=== PATIENT | female | born 1985 | race Caucasian/White ===

== ENCOUNTER 2016-12-09 17:07 | Emergency (ER) | payer BC, OTHER ==
[2016-12-09] MEDS ORDERED: NS 1,000 ML IV ONE (17:36)
[2016-12-09 18:24] LABS: % IMMATURE GRANULYOCYTES 0.3 % (0.0-1.1); ABSOLUTE IMMATURE GRANULOCYTES 0.03 10^3/uL (0.00-0.10); ADD DIFF? NO; ADD MORPH? NO; ADD SCAN? NO; ATYPICAL LYMPHOCYTE FLAG 10 (0-99); FRAGMENT RBC FLAG 30 (0-99); HEMATOCRIT 41.9 % (38.0-47.0); HEMOGLOBIN 13.8 g/dL (12.6-16.3); LEFT SHIFT FLG 0 (0-99); LIPEMIA HEMOLYSIS FLAG 80 (0-99); MEAN CELL HEMOGLOBIN 28.8 pg (27.9-34.1); MEAN CELL HEMOGLOBIN CONCENTR. 32.9 g/dL (32.4-36.7); MEAN CELL VOLUME 87.3 fL (81.5-99.8); MEAN PLATELET VOLUME 9.9 fL (8.7-11.7); PLATELET CLUMPS FLAG 0 (0-99); PLATELET COUNT 333 10^3/uL (150-400); RED CELL DISTRIBUTION WIDTH 13.3 % (11.5-15.2)
[2016-12-09 18:25] LABS: COLOR PALE YELLOW; LEUKOCYTE ESTERASE,URINE TRACE (NEGATIVE); NITRITE,URINE NEGATIVE (NEGATIVE)
[2016-12-09 18:29] VITALS: O2SAT 96
[2016-12-09 18:38] LABS: ANION GAP 13 mEq/L (8-16); CALCIUM 10.6 mg/dL (8.5-10.4); CARBON DIOXIDE 24 mEq/l (22-31); CHLORIDE 100 mEq/L (97-110); CREATININE 0.7 mg/dL (0.6-1.0); GLOMERULAR FILTRATION RATE > 60; GLUCOSE 89 mg/dL (70-100); POTASSIUM 3.9 mEq/L (3.5-5.2); SODIUM 137 mEq/L (134-144)
[2016-12-09 18:44] LABS: BACTERIA 1+ /hpf (NONE SEEN)
[2016-12-09] MEDS ORDERED: NITROFURANTOIN MACROBID 100 MG CAP PO ONE (20:21)
[2016-12-09] MEDS ORDERED: NITROFURANTOIN 100MG PREPACK#2 BTL TAKEHOME ONE (20:21)
[2016-12-09] MEDS ORDERED: CEPHALEXIN 500MG PREPACK#4 BTL TAKEHOME ONE (20:32)
--- NOTE | 2016-12-09 20:38 | EDPHY ---
H & P Stated Complaint: vag spotting, x 1 hour (unable to quantify) 9 weeks no pain Time Seen by Provider: 12/09/16 17:28 HPI/ROS: Chief complaint: with vaginal bleeding History of present illness: This is a 31-year-old female, 2, para 1, approximately 9 weeks who presents to the emergency department with vaginal bleeding. Patient reports the onset of bleeding this evening. She reports some mild dark blood from the vagina. She denies precipitating factors. She denies alleviating factors. Further she denies associated signs or symptoms including no pelvic pain or cramping, no bright red blood from the vagina are clot passage, no urinary symptoms, no fever. Review of systems: A 10 point review of systems was obtained and other than described above was negative - Personal History LMP (Females 10-55): Current Tetanus/Diphtheria Vaccine: Unsure Current Tetanus Diphtheria and Acellular Pertussis (TDAP): Unsure Tetanus Vaccine Date: WITHIN 5 YRS - Medical/Surgical History Hx Asthma: No Hx Chronic Respiratory Disease: No Hx Diabetes: Yes Hx Cardiac Disease: No Hx Renal Disease: No Hx Cirrhosis: No Hx Alcoholism: No Hx HIV/AIDS: No Hx Splenectomy or Spleen Trauma: No Other PMH: PSHx: tonsillectomy, deviated septum repair HSV history Gestational diabetes insulin dependant; - Social History Smoking Status: Never smoked - Physical Exam Exam: General Appearance: Alert, nontoxic. Eyes: Pupils equal and round no pallor or injection. ENT, Mouth: Mucous membranes moist. Respiratory: There are no retractions, lungs are clear to auscultation. Cardiovascular: Regular rate and rhythm. Gastrointestinal: Abdomen is soft and non tender, no masses, bowel sounds normal. Neurological: Alert and oriented x4. Strength and sensation intact and symmetrical. Skin: Warm and dry, no rashes. Musculoskeletal: Neck is supple non tender. Extremities are symmetrical, full range of motion. Psychiatric: Patient is oriented X 3, there is no agitation. Constitutional: Initial Vital Signs Temperature (C) 37.0 C 12/09/16 17:17 Heart Rate 80 12/09/16 17:17 Respiratory Rate 18 12/09/16 17:17 Blood Pressure 136/96 H 12/09/16 17:17 O2 Sat (%) 98 12/09/16 17:17 O2 Delivery Mode Room Air Allergies/Adverse Reactions: Pertussis Vaccines Allergy (Verified 09/02/15 11:52) Home Medications: Medication Instructions Recorded Cephalexin [Keflex] 500 mg PO TID 6 Days cap 12/09/16 HUM INSULIN NPH/REG INSULIN HM 12/09/16 Metformin HCl 12/09/16 Medical Decision Making - Diagnostics Imaging Results: Imaging Impressions Obstetrics Ultrasound 12/09/16 17:37 Impression: 1. Single viable intrauterine gestation with EGA by LMP corresponding to 9 weeks and by ultrasound corresponding to 8 weeks 3 days. 2. Estimated date of delivery is 07/14/2017 by LMP and 07/18/2017 by ultrasound. Size consistent with dates. 3. Tiny subchorionic hemorrhage along the anterior inferior aspect of the gestational sac. Findings discussed with ANTONIETA Theodore at 20:11 hour, 12/09/2016. Imaging: Discussed imaging studies w/ dye lab technician Radiologist ED Course/Re-evaluation: Patient is discussed with my secondary supervising physician Dr. Matthew Naik. Patient presents to the emergency department approximately 9 weeks with dark blood coming from the vagina. She is nontoxic. Afebrile and vital signs are stable. Blood studies are unremarkable. Review of previous records show her blood type as A positive, RhoGAM not indicated. Urinalysis concerning for UTI, review of past urine culture shows sears sensitivity and she is started on Keflex. Ultrasound shows a small subchorionic hemorrhage otherwise unremarkable. I believe patient is appropriate for discharge home and follow up with her OBGYN next week. Home care is discussed including pelvic rest. Strict return precautions are given. Patient voiced understanding and agreement with plan. Differential Diagnosis: Included but not limited to , ectopic , miscarriage, threatened miscarriage, missed miscarriage, inevitable miscarriage, blighted ovum, vaginal infections, urinary tract infection - Data Points Laboratory Results: Laboratory Results 12/09/16 17:46 12/09/16 17:46 12/09/16 12/09/16 12/09/16 18:15 17:46 17:46 WBC 8.74 10^3/uL 10^3/uL (3.80-9.50) RBC 4.80 10^6/uL 10^6/uL (4.18-5.33) Hgb 13.8 g/dL g/dL (12.6-16.3) Hct 41.9 % % (38.0-47.0) MCV 87.3 fL fL (81.5-99.8) MCH 28.8 pg pg (27.9-34.1) MCHC 32.9 g/dL g/dL (32.4-36.7) RDW 13.3 % % (11.5-15.2) Plt Count 333 10^3/uL 10^3/uL (150-400) MPV 9.9 fL fL (8.7-11.7) Neut % (Auto) 61.3 % % (39.3-74.2) Lymph % (Auto) 30.1 % % (15.0-45.0) Frio % (Auto) 6.4 % % (4.5-13.0) Eos % (Auto) 1.4 % % (0.6-7.6) Baso % (Auto) 0.5 % % (0.3-1.7) Nucleat RBC Rel Count 0.0 % % (0.0-0.2) Absolute Neuts (auto) 5.36 10^3/uL 10^3/uL (1.70-6.50) Absolute Lymphs (auto) 2.63 10^3/uL 10^3/uL (1.00-3.00) Absolute Monos (auto) 0.56 10^3/uL 10^3/uL (0.30-0.80) Absolute Eos (auto) 0.12 10^3/uL 10^3/uL (0.03-0.40) Absolute Basos (auto) 0.04 10^3/uL 10^3/uL (0.02-0.10) Absolute Nucleated RBC 0.00 10^3/uL 10^3/uL (0-0.01) Immature Gran % 0.3 % % (0.0-1.1) Immature Gran # 0.03 10^3/uL 10^3/uL (0.00-0.10) Sodium 137 mEq/L mEq/L (134-144) Potassium 3.9 mEq/L mEq/L (3.5-5.2) Chloride 100 mEq/L mEq/L (97-110) Carbon Dioxide 24 mEq/l mEq/l (22-31) Anion Gap 13 mEq/L mEq/L (8-16) BUN 14 mg/dL mg/dL (7-23) Creatinine 0.7 mg/dL mg/dL (0.6-1.0) Estimated GFR > 60 Glucose 89 mg/dL mg/dL (70-100) Calcium 10.6 mg/dL H mg/dL (8.5-10.4) Beta HCG, Quant 244881.00 mIU/mL H mIU/mL (0.00-4.83) Urine Color PALE YELLOW Urine Appearance CLEAR Urine pH 6.0 (5.0-7.5) Ur Specific Logan 1.003 (1.002-1.030) Urine Protein NEGATIVE (NEGATIVE) Urine Ketones NEGATIVE (NEGATIVE) Urine Blood 3+ H (NEGATIVE) Urine Nitrate NEGATIVE (NEGATIVE) Urine Bilirubin NEGATIVE (NEGATIVE) Urine Urobilinogen NEGATIVE EU EU (0.2-1.0) Ur Leukocyte Esterase TRACE H (NEGATIVE) Urine RBC 10-15 /hpf H /hpf (0-3) Urine WBC 5-10 /hpf H /hpf (0-3) Ur Epithelial Cells TRACE /lpf /lpf (NONE-1+) Urine Bacteria 1+ /hpf H /hpf (NONE SEEN) Urine Glucose NEGATIVE (NEGATIVE) Medications Given: Discontinued Medications Cephalexin (Keflex 500 Mg Prepack#4) 1 btl TAKEHOME EDNOW ONE PRN Reason: Protocol Stop: 12/09/16 20:33 Last Admin: 12/09/16 20:46 Dose: 1 btl Sodium Chloride (Ns) 1,000 mls @ 0 mls/hr IV EDNOW ONE; Wide Open PRN Reason: Protocol Stop: 12/09/16 17:37 Last Admin: 12/09/16 18:00 Dose: 1,000 mls Nitrofurantoin (Macrobid 100mg Prepack#2) 1 btl TAKEHOME EDNOW ONE PRN Reason: Protocol Stop: 12/09/16 20:22 Last Admin: 12/09/16 20:36 Dose: Not Given Nitrofurantoin Macrocrystals (Macrobid) 100 mg PO EDNOW ONE PRN Reason: Protocol Stop: 12/09/16 20:22 Last Admin: 12/09/16 20:37 Dose: Not Given Departure - Departure Disposition: Home, Routine, Self-Care Clinical Impression: Threatened UTI (urinary tract infection) Qualifiers: Urinary tract infection type: site unspecified Hematuria presence: with hematuria Qualified Code(s): N39.0 - Urinary tract infection, site not specified ; R31.9 - Hematuria, unspecified Condition: Good Instructions: Cephalexin (By mouth), Threatened Miscarriage (ED), Urinary Tract Infection in (ED), Subchorionic Hemorrhage (ED) Additional Instructions: Follow-up with your OBGYN next week for recheck Take antibiotics as prescribed If symptoms worsen or new symptoms develop return to the emergency room for recheck Referrals: Concepción Clarke NP [Primary Care Provider] - As per Instructions Prescriptions: Cephalexin [Keflex] 500 mg PO TID 6 Days cap
[2016-12-09 20:49] VITALS: BP 120/81; PULSE 81; RESP 16; TEMP 98.2
== END 2016-12-09 20:49 | disposition home or self-care (01) ==
PROC: 3E0337Z Introduction of Electrolytic and Water Balance Substance into Peripheral Vein, Percutaneous Approach (ICD-10-PCS; principal; 2016-12-09)
DX: O20.0 Threatened abortion (principal); O23.41 Unspecified infection of urinary tract in pregnancy, first trimester; O26.891 Other specified pregnancy related conditions, first trimester; R31.9 Hematuria, unspecified; O99.281 Endocrine, nutritional and metabolic diseases complicating pregnancy, first trimester; E86.9 Volume depletion, unspecified; Z3A.09 9 weeks gestation of pregnancy; Z79.4 Long term (current) use of insulin

== ENCOUNTER → 2017-01-08 | Outpatient (CLI) | payer BC | LOC: FIMAGING 08:06 | PROVIDERS: ATTEND Advanced Practice Midwife | DX: O24.111 Pre-existing type 2 diabetes mellitus, in pregnancy, first trimester (principal); Z3A.13 13 weeks gestation of pregnancy ==

== ENCOUNTER → 2017-02-26 | Outpatient (CLI) | payer BC | LOC: FIMAGING 07:49 | PROVIDERS: ATTEND Obstetrics & Gynecology | DX: Z36.89 Encounter for other specified antenatal screening (principal); Z3A.20 20 weeks gestation of pregnancy; O24.415 Gestational diabetes mellitus in pregnancy, controlled by oral hypoglycemic drugs; O34.219 Maternal care for unspecified type scar from previous cesarean delivery ==

== ENCOUNTER → 2017-04-03 | Outpatient (CLI) | payer BC | LOC: FIMAGING 08:32 | PROVIDERS: ATTEND Obstetrics & Gynecology | DX: O24.414 Gestational diabetes mellitus in pregnancy, insulin controlled (principal); O34.219 Maternal care for unspecified type scar from previous cesarean delivery; Z3A.25 25 weeks gestation of pregnancy ==

== ENCOUNTER → 2017-05-07 | Outpatient (CLI) | payer BC | LOC: FIMAGING 09:07 | PROVIDERS: ATTEND Obstetrics & Gynecology | DX: O24.414 Gestational diabetes mellitus in pregnancy, insulin controlled (principal); Z3A.30 30 weeks gestation of pregnancy ==

== ENCOUNTER 2017-06-11 10:40 | Observation (INO) | payer BC | END 2017-06-11 12:30 | disposition home or self-care (01) | LOC: FLD 10:40 | PROVIDERS: ADMIT Obstetrics & Gynecology; ATTEND Obstetrics & Gynecology | DX: Z34.83 Encounter for supervision of other normal pregnancy, third trimester (principal); Z3A.35 35 weeks gestation of pregnancy | CPT/HCPCS: 59025; G0378 ==

== ENCOUNTER → 2017-06-18 | Outpatient (CLI) | payer BC | LOC: FIMAGING 08:48 | PROVIDERS: ATTEND Obstetrics & Gynecology | DX: O09.893 Supervision of other high risk pregnancies, third trimester (principal); O24.113 Pre-existing type 2 diabetes mellitus, in pregnancy, third trimester; O34.219 Maternal care for unspecified type scar from previous cesarean delivery; Z3A.36 36 weeks gestation of pregnancy ==

== ENCOUNTER 2017-07-09 07:30 | Inpatient (IN) | payer BC ==
[2017-07-09] MEDS ORDERED: CITRIC ACID/SODIUM CITRATE 30 ML UDCUP PO ONE (08:45)
[2017-07-09] MEDS ORDERED: LR 500 ML IV ONE (08:45)
[2017-07-09] MEDS ORDERED: LR 1,000 ML IV SCH (09:00)
[2017-07-09 09:03] LABS: PLATELET COUNT 242 10^3/uL (150-400)
--- NOTE | 2017-07-09 09:22 | PDGENHP ---
History and Physical - Chief Complaint Scheduled RLTCS, Type II DM, h/o prior CS - History of Present Illness Salazar is a very pleasant 32 yo now with h/o GDM and subsequent dx of persistent (type II) DM. Has been seeing endo throughout the and has been on insulin - most recent regimen has been 60 units of long-acting insulin qHS and no need for mealtime correction. testing has been reassuring , and growth US's reassuring/WNL as below. Has had diarrhea/nausea since 0400 this AM unfortunately. She was interested in if cervix was favorable, but checked this AM on arrival to the hospital and found to be closed. 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 Constitutional: no apparent distress Lab Data & Imaging Review 07/09/17 08:48 WBC 10.18 10^3/uL (3.80-9.50) H 07/09/17 08:48 RBC 4.61 10^6/uL (4.18-5.33) 07/09/17 08:48 Hgb 11.6 g/dL (12.6-16.3) L 07/09/17 08:48 Hct 36.8 % (38.0-47.0) L 07/09/17 08:48 MCV 79.8 fL (81.5-99.8) L 07/09/17 08:48 MCH 25.2 pg (27.9-34.1) L 07/09/17 08:48 MCHC 31.5 g/dL (32.4-36.7) L 07/09/17 08:48 RDW 15.9 % (11.5-15.2) H 07/09/17 08:48 Plt Count 242 10^3/uL (150-400) 07/09/17 08:48 MPV 11.1 fL (8.7-11.7) 07/09/17 08:48 Neut % (Auto) 78.2 % (39.3-74.2) H 07/09/17 08:48 Lymph % (Auto) 14.8 % (15.0-45.0) L 07/09/17 08:48 Wright % (Auto) 5.8 % (4.5-13.0) 07/09/17 08:48 Eos % (Auto) 0.5 % (0.6-7.6) L 07/09/17 08:48 Baso % (Auto) 0.1 % (0.3-1.7) L 07/09/17 08:48 Nucleat RBC Rel Count 0.0 % (0.0-0.2) 07/09/17 08:48 Absolute Neuts (auto) 7.96 10^3/uL (1.70-6.50) H 07/09/17 08:48 Absolute Lymphs (auto) 1.51 10^3/uL (1.00-3.00) 07/09/17 08:48 Absolute Monos (auto) 0.59 10^3/uL (0.30-0.80) 07/09/17 08:48 Absolute Eos (auto) 0.05 10^3/uL (0.03-0.40) 07/09/17 08:48 Absolute Basos (auto) 0.01 10^3/uL (0.02-0.10) L 07/09/17 08:48 Absolute Nucleated RBC 0.00 10^3/uL (0-0.01) 07/09/17 08:48 Immature Gran % 0.6 % (0.0-1.1) 07/09/17 08:48 Immature Gran # 0.06 10^3/uL (0.00-0.10) 07/09/17 08:48 Assessment & Plan Assessment: 32 yo at 39w1d - here for scheduled RLTCS. H/o prior CS, but unfavorable cervix on exam this AM. Comfortable going ahead with OR. Type II DM on insulin, HSV2 on acyclovir prophylaxis. - RBA discussed and consents signed in person. - Routine preop orders, weight-based Ancef. - Will check BG preop and with AM fasting and 2hr post-prandials PP, will adjust insulin needs PRN. JM
[2017-07-09] MEDS ORDERED: ceFAZolin 2 GM/SWFI 2 GM/20 ML SYR IVP ONE (09:26)
--- NOTE | 2017-07-09 09:50 | PREANESOB ---
Obstetric Pre-Anesthesia Info - General Info Proposed Procedure: repeat : 2 Para: 1 DIANA: 07/15/17 Gestational Age: 39 week(s) and 1 day(s) Anesthesia ROS: h/o gestational diabetes Allergies/Adverse Reactions: Allergy/AdvReac Type Severity Reaction Status Date / Time Pertussis Vaccines Allergy Verified 09/02/15 11:52 Home Medications: Medication Instructions Recorded Cephalexin [Keflex] 500 mg PO TID 6 Days cap 12/09/16 HUM INSULIN NPH/REG INSULIN HM 12/09/16 Metformin HCl 12/09/16 Valtrex (*) 07/09/17 Visit Medications: Generic Name Dose Route Start Last Admin Trade Name Freq PRN Reason Stop Dose Admin Lactated Ringer's 1,000 mls @ 125 mls/hr 07/09/17 09:00 Lr IV 07/10/17 08:59 CONT SEFERINO Cefazolin Sodium 2 gm in 20 mls @ 40 mls/hr 07/09/17 09:26 Cefazolin Syringe IVP 07/09/17 09:55 ONCALL ONE Protocol Discontinued Medications Generic Name Dose Route Start Last Admin Trade Name Freq PRN Reason Stop Dose Admin Citric Acid/Sodium Citrate 30 ml 07/09/17 08:45 Bicitra PO 07/09/17 08:46 ONCALL ONE Lactated Ringer's 500 mls @ 0 mls/hr 07/09/17 08:45 Lr IV 07/09/17 08:46 ONCE ONE As Directed - Vital Signs Latest Vital Signs (Nursing): Temp Pulse Resp BP Pulse Ox 37.1 C 85 18 119/80 07/09/17 09:34 07/09/17 09:34 07/09/17 09:34 07/09/17 09:34 Height/Weight (Nursing): Height 190.5 cm Weight 100.244 kg - Focused Exam Neck exam: FROM Mallampati Score: Class 1 Mouth exam: normal dental/mouth exam Pulmonary: no respiratory distress Cardiovascular: regular rate and rhythym Labs: 07/09/17 08:48 Patient ABO/Rh A POSITIVE 07/09/17 08:48 - Plan Anesthetic Plan: sab Consent Signed and on Chart: Yes Patient/Guardian Understands and Agrees to Plan: Yes
[2017-07-09] MEDS ORDERED: morphINE PF 5 MG/10 ML INJ ONE (09:52)
[2017-07-09] MEDS ORDERED: PROPOFOL 200 MG/20 ML VIAL ONE ×2 (09:57→11:12)
[2017-07-09] MEDS ORDERED: OXYTOCIN 100 UNITS/10 ML VIAL ONE (10:46)
[2017-07-09] MEDS ORDERED: fentaNYL 100 MCG/2 ML INJ ONE ×2 (10:46→10:48)
[2017-07-09] MEDS ORDERED: HYDROmorphONE/DILAUDID 2 MG/ML INJ ONE (10:52)
--- NOTE | 2017-07-09 11:43 | SUROPNOTE ---
[facility] Operative Report - Surgery Date of Operation: 07/09/17 Surgeon: Roger Sotomayor Lumber Piler: Lanie Bond RN Anesthesiologist: Jesi Dalal Anesthesia: Spinal Pre-op Diagnosis: H/o prior , DM2 Post-op Diagnosis: Same Procedure: Scheduled repeat low transverse section Findings: Minimal scar tisuse, normal uterus, normal tubes and ovaries bilaterally Inf/Abcess present in the surg proc area at time of surgery?: No Complications: None Specimen(s): Placenta sent to path, no cord blood gasses were sent. Technique: The patient was taken to the OR where spinal was placed and anesthesia found to be adequate. The patient was then positioned supine with a leftward tilt and a time-out was performed. She was given weight-based antibiotics prior to skin incision. The abdomen was prepped and draped in normal sterile fashion. A Pfannenstiel skin incision was made with the scalpel and carried down to the fascia. Her prior transverse scar was excised prior to that dissection. The fascia was incised in the midline and the incision extended bilaterally sharply with scissors. The fascia was dissected off of the underlying rectus muscles superiorly and inferiorly also sharply using scissors. The rectus were in the midline and the peritoneum identified and entered bluntly without issue. Minimal adhesions encountered as described in findings. The peritoneal incision was extended and the bladder blade was then placed. The vesicouterine junction was identified and a bladder flap created sharply and developed bluntly. A transverse incision was made with the scalpel in the lower uterine segment and extended with cephalad and caudad traction on the incision edges. The head was encountered and easily elevated out of the pelvis and delivered atraumatically, followed by the shoulders and body. The nose and mouth were bulb suctioned. We did wait for 60 seconds before clamping and cutting the cord and then the was handed to pediatric staff. Cord blood gases were not sent and the placenta was sent to pathology. The uterus was then exteriorized and carefully wiped of all debris. The uterus was closed in two layers - the first layer was running with 180 0-vloc and the second a vertical imbricating layer using 0-vicryl. The gutters were cleared of all clots. The uterine incision was re-inspected and found to be hemostatic after placement of additional figure of eight sutures of 3-0 vicryl. The uterus was then returned to the abdomen. The fascia was elevated and the rectus muscles and subcutaneous tissues were found to be hemostatic. The fascia was closed with a running 0-Vicryl - single suture. The subcutaneous tissues were irrigated and hemostasis obtained. The subcutaneous space was closed with interrupted sutures of 2-0 vicryl. The skin was closed with 4-0 vloc undyed and then covered with Medipore dressing. The patient tolerated the procedure and was taken to recovery in stable condition. Lap, needle, sponge, and instrument count were announced as correct times two. I was present and scrubbed for the entire case.
[2017-07-09] MEDS ORDERED: HYDROmorphONE/DILAUDID 6 MG/30 ML PCA IV PRN (11:44)
[2017-07-09] MEDS ORDERED: NALOXONE HCL 0.4 MG/ML INJ IVP PRN ×2 (11:44→11:46)
[2017-07-09] MEDS ORDERED: PROMETHAZINE HCL 25 MG/ML INJ IVP PRN ×2 (11:46→11:48)
[2017-07-09] MEDS ORDERED: HYDROmorphONE/DILAUDID 1 MG/ML INJ IVP PRN (11:46)
[2017-07-09] MEDS ORDERED: HYDROCODONE/APAP 5/325 TAB PO PRN (11:46)
[2017-07-09] MEDS ORDERED: fentaNYL 100 MCG/2 ML INJ IVP PRN (11:46)
[2017-07-09] MEDS ORDERED: ONDANSETRON 4 MG/2 ML VIAL IVP PRN (11:46)
[2017-07-09] MEDS ORDERED: DOCUSATE SODIUM 100 MG CAP PO PRN (11:48)
[2017-07-09] MEDS ORDERED: ACETAMINOPHEN 325 MG TAB PO PRN (11:48)
[2017-07-09] MEDS ORDERED: SIMETHICONE 80 MG TAB CHEW PO PRN (11:48)
--- NOTE | 2017-07-09 11:59 | POSTANESTH ---
Post Anesthetic Evaluation Cardiovascular Status: Normal, Stable Respiratory Status: Normal, Stable Level of Consciousness/Mental Status: Can Participate in Eval Pain Control: Inadeq, Add Tx Required Nausea/Vomiting Control: Adequate, Prn Tx Ordered Complications Possibly Related to Anesthesia: None Noted (Pt. spinal anesthesia weared off in 45minutes( sooner than expected))
[2017-07-09] MEDS ORDERED: MAGNESIUM HYDROXIDE 30 ML UDCUP PO PRN (14:46)
[2017-07-09] MEDS ORDERED: LACTULOSE 20 GM/30 ML UDCUP PO PRN (14:46)
[2017-07-09] MEDS ORDERED: BISACODYL 10 MG SUPP PR PRN (14:46)
[2017-07-09] MEDS ORDERED: POLYETHYLENE GLYCOL 3350 17 GM PKT PO PRN (14:46)
[2017-07-09] MEDS: KETOROLAC 30 MG/1 ML SDV IVP SCH ×2 (18:02→19:33)
[2017-07-09] MEDS ORDERED: D50W 25 GM/50 ML SYR IVP PRN (19:07)
[2017-07-09] MEDS: OXYCODONE/APAP 5/325 TAB PO PRN (20:12)
[2017-07-09] MEDS: SENNOSIDES/DOCUSATE SODIUM TAB PO SCH (22:05)
[2017-07-10] MEDS: KETOROLAC 30 MG/1 ML SDV IVP SCH ×2 (00:36→06:17)
[2017-07-10] MEDS: OXYCODONE/APAP 5/325 TAB PO PRN ×6 (00:36→21:53)
[2017-07-10] MEDS ORDERED: INSULIN LISPRO 100 UNIT/ML SC SCH (08:00)
--- NOTE | 2017-07-10 08:46 | OBPP ---
Progress Note Assessment/Plan: Assessment: s/p repeat LTCS. POD #1 Gestational diabetic HCT 28 this AM Plan: 1. Routine post op care 2. Will add bid ferrous sulfate 3. Advance diet as tolerated 4. DC gamez 5. Activity as tolerated - encouraged ambulation 6. Remove abd dressing 07/10/17 10:59 Subjective/ Course: 07/10/17 10:57 Patient is feeling good this AM. Sitting at side of bed. States pain well controlled with pain medication. with help from support. Objective: 07/10/17 01:15 Patient ABO/Rh A POSITIVE 07/09/17 08:48 Temp Pulse Resp BP Pulse Ox 37.3 C 73 16 99/62 L 93 07/10/17 04:18 07/10/17 04:18 07/10/17 04:18 07/10/17 04:18 07/10/17 04:18 VSS Respirations unlabored Extremities with minimal edema Abd dressing dry/intact Lochia scant Fundus firm hypoactive bowel sounds Nipples intact Uterine Position/Fundal Height: At Umbilicus (abd dressing dry/intact) Uterine Tone: Firm Physical Exam - Physical Exam EENT: PERRL/EOMI Neck: non-tender Respiratory: normal breath sounds Cardiac/Chest: regular rate, rhythm Abdomen: hypoactive bowel sounds Extremities: normal range of motion Skin: normal color, warm/dry Neuro/Psych: alert, normal mood/affect, oriented x 3
[2017-07-10] MEDS: SENNOSIDES/DOCUSATE SODIUM TAB PO SCH ×2 (09:06→19:45)
[2017-07-10] MEDS: FERROUS SULFATE 325 MG TAB PO SCH ×2 (13:36→19:44)
[2017-07-10] MEDS: IBUPROFEN 600 MG TAB PO PRN ×2 (13:46→19:41)
[2017-07-11] MEDS: IBUPROFEN 600 MG TAB PO PRN ×4 (02:06→20:35)
[2017-07-11] MEDS: OXYCODONE/APAP 5/325 TAB PO PRN ×5 (02:06→19:15)
[2017-07-11] MEDS: SENNOSIDES/DOCUSATE SODIUM TAB PO SCH ×2 (09:24→20:35)
[2017-07-11] MEDS: FERROUS SULFATE 325 MG TAB PO SCH ×2 (09:24→20:35)
--- NOTE | 2017-07-11 19:20 | OBPP ---
Progress Note Assessment/Plan: Assessment:32 yo now POD#2 from repeat C/S. Doing well. GDM. Plan: Continue routine pp cares. Anticipate dc home tomorrow. Alecia Owens MD, FACOG 07/11/17 19:32 Subjective/ Course: 07/10/17 10:57 Patient is feeling good this AM. Sitting at side of bed. States pain well controlled with pain medication. with help from support. 07/11/17 19:18 Pt doing well, feeling well. Has been up and voiding without difficulty. Tolerating a regular diet. Ambulating without dizziness. 07/11/17 19:34 Objective: 07/10/17 01:15 Patient ABO/Rh A POSITIVE 07/09/17 08:48 Temp Pulse Resp BP Pulse Ox 36.3 C 77 16 112/71 94 07/11/17 08:00 07/11/17 08:00 07/11/17 08:00 07/11/17 08:00 07/10/17 19:40 gen - pleasant, NAD CV - RRR chest - CTAB abd -soft, fundus firm at u-2, + BS, incision - c/d/i ext - calves NT, 1+ edema Uterine Position/Fundal Height: Umbilicus -2 Uterine Tone: Firm
[2017-07-12] MEDS: IBUPROFEN 600 MG TAB PO PRN ×4 (02:32→21:16)
[2017-07-12] MEDS: SENNOSIDES/DOCUSATE SODIUM TAB PO SCH ×2 (08:40→21:17)
[2017-07-12] MEDS: FERROUS SULFATE 325 MG TAB PO SCH ×2 (08:40→21:18)
[2017-07-12] MEDS: OXYCODONE/APAP 5/325 TAB PO PRN ×4 (08:46→21:15)
--- NOTE | 2017-07-12 10:12 | OBPP ---
Progress Note Assessment/Plan: Assessment: [id number] s/p repeat c/s A2GDM POD#3 with latch difficulty short/cracked/bleeding nipples Plan: routine post op care support APNO rx called in plan to d/c home tomorrow 07/12/17 10:08 07/12/17 10:14 Subjective/ Course: 07/10/17 10:57 Patient is feeling good this AM. Sitting at side of bed. States pain well controlled with pain medication. with help from support. 07/11/17 19:18 Pt doing well, feeling well. Has been up and voiding without difficulty. Tolerating a regular diet. Ambulating without dizziness. 07/11/17 19:34 07/12/17 10:10 Pt doing well, states she is having nipple pain and trouble with latch. She is very upset as she had issues with first child and . She denies any incision pain. she reports min bleeding. She is ambulating and voiding without difficulty. She denies BM yet. She desires d/c home tomorrow. Objective: 07/10/17 01:15 Patient ABO/Rh A POSITIVE 07/09/17 08:48 Temp Pulse Resp BP Pulse Ox 36.4 C 68 16 116/78 94 07/11/17 23:30 07/11/17 23:30 07/11/17 23:30 07/11/17 23:30 07/11/17 23:30 Uterine Position/Fundal Height: Umbilicus -1, Midline Uterine Tone: Firm Physical Exam - Physical Exam General Appearance: WD/WN, alert, no apparent distress Neck: supple Cardiac/Chest: other (nipples short/red/cracked) Abdomen: non-tender, soft, incision (well approximated, healing well) Skin: normal color, warm/dry
[2017-07-13] MEDS: OXYCODONE/APAP 5/325 TAB PO PRN ×3 (02:53→12:32)
[2017-07-13] MEDS: IBUPROFEN 600 MG TAB PO PRN ×2 (02:54→09:02)
[2017-07-13] MEDS: SENNOSIDES/DOCUSATE SODIUM TAB PO SCH (09:01)
[2017-07-13] MEDS: FERROUS SULFATE 325 MG TAB PO SCH (09:02)
--- NOTE | 2017-07-13 13:30 | OBPP ---
Progress Note Assessment/Plan: Assessment: POD 4 s/p RCS anemia Plan: D/C home, iron daily 07/13/17 13:25 Subjective/ Course: 07/10/17 10:57 Patient is feeling good this AM. Sitting at side of bed. States pain well controlled with pain medication. with help from support. 07/11/17 19:18 Pt doing well, feeling well. Has been up and voiding without difficulty. Tolerating a regular diet. Ambulating without dizziness. 07/11/17 19:34 07/12/17 10:10 Pt doing well, states she is having nipple pain and trouble with latch. She is very upset as she had issues with first child and . She denies any incision pain. she reports min bleeding. She is ambulating and voiding without difficulty. She denies BM yet. She desires d/c home tomorrow. 07/13/17 13:30 Pt doing well - pain managed by percocet and controls pain when taken regularly. bld is light. urinating fine. baby is latching well. not dizzy when ambulating. ready for d/c Objective: 07/10/17 01:15 Patient ABO/Rh A POSITIVE 07/09/17 08:48 Temp Pulse Resp BP Pulse Ox 36.4 C 78 16 118/74 96 07/12/17 19:35 07/12/17 19:35 07/12/17 19:35 07/12/17 19:35 07/12/17 19:35 Uterine Position/Fundal Height: Umbilicus -1 Uterine Tone: Firm Physical Exam - Physical Exam Abdomen: non-tender (approp post op tenderness), soft, other (incision CDI, normal lochia) Extremities: non-tender, pedal edema (mild) Skin: normal color, warm/dry Neuro/Psych: alert, normal mood/affect
--- NOTE | 2017-07-13 13:39 | OBGCSDC ---
General Delivery Information - General Info : 2 Para: 2 Abortions: 0 Type: Repeat L&D Analgesia/Anesthesia Type: Spinal Admission Date: 07/09/17 Labs: Patient ABO/Rh A POSITIVE 07/09/17 08:48 Hct 28.2 % (38.0-47.0) L D 07/10/17 01:15 - Hospital Course : 07/10/17 10:57 Patient is feeling good this AM. Sitting at side of bed. States pain well controlled with pain medication. with help from support. 07/11/17 19:18 Pt doing well, feeling well. Has been up and voiding without difficulty. Tolerating a regular diet. Ambulating without dizziness. 07/11/17 19:34 07/12/17 10:10 Pt doing well, states she is having nipple pain and trouble with latch. She is very upset as she had issues with first child and . She denies any incision pain. she reports min bleeding. She is ambulating and voiding without difficulty. She denies BM yet. She desires d/c home tomorrow. 07/13/17 13:30 Pt doing well - pain managed by percocet and controls pain when taken regularly. bld is light. urinating fine. baby is latching well. not dizzy when ambulating. ready for d/c - Delivery Providers Surgeon: Roger Sotomayor Tax Examining Technician: Lanie Bond Anesthesiologist: Katlin Dennison - Delivery Number of Prior Sections: 1 Indications for Current Section: Elective/Repeat Surgical Procedures: Scheduled, Low Transverse Intra-op Complications: None [place] Data DIANA: 07/15/17 Gestational Age: 39 week(s) and 5 day(s) [place] Delivery Date: 07/09/17 Delivery Time: 10:44 Sex of Infant: Female Weight (gm): 3664 kg Score (1 Min): 9 Score (5 Min): 9 Discharge Information - Discharge Information Prescriptions: oxyCODONE/APAP 5/325 [Percocet 5/325 (*)] 1 tab PO Q4HRS PRN #30 tab PRN Reason: Pain, Severe Able To Take Po Condition: Good Instruction/Follow Up: See Instruction Sheet, Two Weeks, Four Weeks, Six Weeks
[2017-07-13 17:23] VITALS: BP 123/76
== END 2017-07-13 14:30 | disposition home or self-care (01) | DRG 766 ==
LOC: FLD 07:44 → FOB 14:36
PROVIDERS: ADMIT Obstetrics & Gynecology; ATTEND Obstetrics & Gynecology
PROC: 10D00Z1 Extraction of Products of Conception, Low, Open Approach (ICD-10-PCS; principal; 2017-07-09)
DX: O34.219 Maternal care for unspecified type scar from previous cesarean delivery (principal); O24.414 Gestational diabetes mellitus in pregnancy, insulin controlled; O98.519 Other viral diseases complicating pregnancy, unspecified trimester; B00.9 Herpesviral infection, unspecified; Z3A.39 39 weeks gestation of pregnancy; Z37.0 Single live birth
CPT/HCPCS: J0690; J1170; J1885; J2274; J2590; J2704; J3010